=== PATIENT | male | born 1975 | race Two or more races ===

== ENCOUNTER 2022-09-03 07:46 | Emergency (ER) | payer MEDICAID ==
[~2022-09-03] VITALS: Ht 167.6 cm; Wt 70.7 kg
[2022-09-03 08:25] VITALS: BP 151/94
[2022-09-03] MEDS ORDERED: IBUP800T27 PO (08:52)
== END 2022-09-03 09:05 | disposition home or self-care (01) ==
LOC: ER 07:46
DX: S62.655A Nondisplaced fracture of middle phalanx of left ring finger, initial encounter for closed fracture (principal); X50.0XXA Overexertion from strenuous movement or load, initial encounter; Y93.89 Activity, other specified; Y92.89 Other specified places as the place of occurrence of the external cause; Y99.8 Other external cause status
CPT/HCPCS: 26725; 73130

== ENCOUNTER 2023-08-31 11:10 | Emergency (ER) | payer MEDICAID ==
[~2023-08-31] VITALS: Ht 167.6 cm; Wt 68.4 kg
[~2023-08-31 11:10] MED LIST: IBUP-1456 PO
[2023-08-31 11:27] VITALS: BP 134/83; PULSE 94; RESP 16; O2SAT 97
== END 2023-08-31 15:26 | disposition left against medical advice (07) ==
LOC: ER 11:10
DX: S60.562A Insect bite (nonvenomous) of left hand, initial encounter (principal); Z53.21 Procedure and treatment not carried out due to patient leaving prior to being seen by health care provider; W57.XXXA Bitten or stung by nonvenomous insect and other nonvenomous arthropods, initial encounter; Y93.89 Activity, other specified; Y92.89 Other specified places as the place of occurrence of the external cause; Y99.8 Other external cause status